=== PATIENT | male | born 1950 | race Caucasian/White ===

== ENCOUNTER → 2016-08-01 | Outpatient (CLI) | payer MEDICARE ==
--- NOTE | 2016-08-01 11:48 | REP ---
Clinical: Chest pain and abnormal breath sounds. Technique: PA and lateral. Comparison: 02/08/2015. Findings: Mediastinum and cardiac silhouette are normal. Lung griffiths demonstrate stable chronic interstitial changes without obvious acute consolidation, effusion, or pneumothorax. Skeletal structures intact. Impression: Chronic stable changes. No acute cardiopulmonary process appreciated. Signed by Oswaldo Scruggs MD 08/01/2016 11:39 A
== END ==
LOC: M LRY 11:04
PROVIDERS: ATTEND Nurse Practitioner Family
DX: R91.8 Other nonspecific abnormal finding of lung field (principal)
CPT/HCPCS: 71020; 81002; G0463

== ENCOUNTER → 2016-08-01 | Outpatient (REF) | payer MEDICARE | LOC: M SFHCLERA 10:10 | PROVIDERS: ATTEND Nurse Practitioner Family | DX: R10.9 Unspecified abdominal pain (principal) ==

== ENCOUNTER → 2017-10-02 | Outpatient (REF) | payer MEDICARE ==
[2017-10-02 19:08] LABS: HEMOGLOBIN 12.8 g/dl (13.5-17.5); MEAN CORPUSCULAR HGB CONC 35.6 g/dl (32.0-36.5); MEAN CORPUSCULAR VOLUME 87.2 fl (80.0-96.0); PLATELET COUNT, AUTOMATED 261 10^3/uL (150-450); RED BLOOD COUNT 4.13 10^6/uL (4.30-6.10); WHITE BLOOD COUNT 5.8 10^3/uL (4.0-10.0)
[2017-10-06 00:07] LABS: Lyme Disease IgG/IgM Antibodie <0.91 ISR (0.00-0.90); Lyme Disease IgM Ab Quantitati <0.80 index (0.00-0.79)
== END ==
LOC: M SFHCLERA 17:07
DX: R21 Rash and other nonspecific skin eruption (principal)
CPT/HCPCS: 85027

== ENCOUNTER → 2017-12-12 | Outpatient (CLI) | payer MEDICARE | LOC: M LRY 18:48 | DX: R10.32 Left lower quadrant pain (principal) | CPT/HCPCS: 74021; 81002 ==

== ENCOUNTER → 2020-01-03 | Outpatient (CLI) | payer MEDICARE | LOC: M LABSMTC 09:46 | PROVIDERS: ATTEND Internal Medicine Cardiovascular Disease | DX: Z20.828 Contact with and (suspected) exposure to other viral communicable diseases (principal) | CPT/HCPCS: C9803; U0003 ==

== ENCOUNTER → 2020-03-13 | Outpatient (CLI) | payer MEDICARE | LOC: M LABSMTC 12:21 | PROVIDERS: ATTEND Internal Medicine Cardiovascular Disease | DX: Z01.812 Encounter for preprocedural laboratory examination (principal); Z20.828 Contact with and (suspected) exposure to other viral communicable diseases; I48.4 Atypical atrial flutter; I48.0 Paroxysmal atrial fibrillation ==